=== PATIENT | male | born 1970 | race Caucasian/White ===

== ENCOUNTER 2018-06-10 16:31 | Inpatient (IN) | payer OTHER ==
[~2018-06-10] VITALS: Ht 193 cm; Wt 172.9 kg
[~2018-06-10 16:31] MED LIST: CLOM50TA17 PO; LOSA25TA25 PO; NAPR-856 PO
[2018-06-10] MEDS ORDERED: ASPIRIN 81 MG TABLET CHEW ONE (16:44)
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
--- NOTE | 2018-06-10 16:44 | NUR ---
CODE CARDIAC CALLED CARDS CALLED
[2018-06-10] MEDS ORDERED: MIDAZOLAM 1 MG/ML, 5ML ONE (16:46)
[2018-06-10] MEDS ORDERED: LIDOCAINE 1%, 20ML ONE (16:47)
[2018-06-10] MEDS ORDERED: HEPARIN 1,000 UNITS/ML, 10ML ONE (16:47)
[2018-06-10] MEDS ORDERED: FENTANYL PF 250 MCG/5ML ONE (16:47)
[2018-06-10] MEDS ORDERED: BIVALIRUDIN 250 MG ONE (16:47)
[2018-06-10] MEDS: NITROGLYCERIN SINGLE TAB 0.4 MG SL PRN ×2 (16:52→16:59)
--- NOTE | 2018-06-10 16:54 | NUR ---
[employer]ODUCTION WORKER READY
--- NOTE | 2018-06-10 16:59 | NUR ---
NO CHANGE IN PAIN POST 1ST NITRO. VS NOTED. 2ND DOSE NITRO GIVEN SUBLINGUAL. PT TO ONLINE SERVICES MANAGER WITH RN ASSIST.
[2018-06-10] MEDS ORDERED: ASPIRIN 81 MG TABLET CHEW PO ONE (17:00)
[2018-06-10] MEDS ORDERED: VERAPAMIL 2.5 MG/ML, 2ML ONE (17:04)
[2018-06-10 17:05] LABS: BASOPHILS # (AUTO) 0.11 x10^3/uL (0-0.1); BASOPHILS % (AUTO) 1 % (0-1); EOSINOPHILS # (AUTO) 0.21 x10^3/uL (0-0.4); EOSINOPHILS % (AUTO) 3 % (1-7); LYMPHOCYTES # (AUTO) 3.35 x10^3/uL (1-3.4); LYMPHOCYTES % (AUTO) 41 % (22-44); MD NO; MEAN CORPUSCULAR HGB CONC 34.5 g/dL (33.2-36.2); MEAN CORPUSCULAR VOLUME 92.7 fL (81-97); MEAN PLATELET VOLUME 7.3 fL (7.4-10.4); MONOCYTES # (AUTO) 0.48 x10^3/uL (0.2-0.8); MONOCYTES % (AUTO) 6 % (2-9); NEUTROPHILS # (AUTO) 3.96 x10^3/uL (1.8-6.8); NEUTROPHILS % (AUTO) 49 % (42-75); PLATELET COUNT 177 x10^3/uL (130-400); RED BLOOD COUNT 5.31 x10^6/uL (4.38-5.82); RED CELL DISTRIBUTION WIDTH 12.9 % (9.4-14.8)
[2018-06-10] MEDS ORDERED: PRASUGREL 10 MG TABLET ONE (17:09)
[2018-06-10 17:11] LABS: ALBUMIN 4.1 g/dL (3.4-5.0); ANION GAP 10 mmol/L (5-15); CALCIUM 9.4 mg/dL (8.5-10.1); CHLORIDE 103 mmol/L (98-107); CREATININE 0.92 mg/dL (0.7-1.3)
[2018-06-10 17:15] LABS: TROPONIN I < 0.015 ng/mL (0.000-0.045)
[2018-06-10 17:22] LABS: INTERNATIONAL NORMALIZED RATIO 1.01 (0.93-1.1); PROTHROMBIN TIME 10.7 Seconds (9.6-11.5)
[2018-06-10] MEDS ORDERED: BIVALIRUDIN 250 MG in DEXTROSE 5% 100 ML IV SCH (17:31)
[2018-06-10] MEDS ORDERED: FUROSEMIDE 40 MG/4 ML ONE (17:45)
[2018-06-10] MEDS ORDERED: ONDANSETRON 2MG/ML, 2ML IVPush PRN (18:00)
[2018-06-10] MEDS ORDERED: ZOLPIDEM 5MG TABLET PO PRN (18:00)
[2018-06-10] MEDS ORDERED: POTASSIUM CHLORIDE 20 MEQ TAB.ER.PRT PO ONE (18:00)
[2018-06-10] MEDS ORDERED: morphine SULFATE 10 MG/ML, 1ML IV PRN (18:00)
[2018-06-10 19:23] LABS: CHOL/HDL RATIO 4.5; LDL/HDL RATIO 2.5 (0.5-3.0)
[2018-06-10] MEDS: ATORVASTATIN 80 MG TABLET PO SCH (20:43)
[2018-06-10] MEDS: METOPROLOL TARTRATE 50 MG TABLET PO SCH (20:44)
[2018-06-10] MEDS: SODIUM CHLORIDE FLUSH 10ML SYR IVF SCH (20:47)
[2018-06-10] MEDS: ACETAMINOPHEN 325 MG TABLET PO PRN (22:18)
[2018-06-10 23:40] VITALS: BP 133/74
[2018-06-11 04:33] LABS: ANION GAP 6 mmol/L (5-15); CALCIUM 8.6 mg/dL (8.5-10.1); CHLORIDE 104 mmol/L (98-107); CREATININE 0.97 mg/dL (0.7-1.3)
[2018-06-11] MEDS: METOPROLOL TARTRATE 50 MG TABLET PO SCH (06:34)
[2018-06-11] MEDS ORDERED: LISINOPRIL 5 MG TABLET ONE (07:51)
[2018-06-11] MEDS: ASPIRIN 81 MG TABLET EC PO SCH (08:01)
[2018-06-11] MEDS: ACETAMINOPHEN 325 MG TABLET PO PRN (08:02)
[2018-06-11] MEDS: PRASUGREL 10 MG TABLET PO SCH (08:02)
[2018-06-11] MEDS: SODIUM CHLORIDE FLUSH 10ML SYR IVF SCH ×2 (08:24→21:27)
[2018-06-11] MEDS: LISINOPRIL 5 MG TABLET PO SCH (08:24)
[2018-06-11 10:54] VITALS: BP 152/94
[2018-06-11 12:21] VITALS: BP 150/89
[2018-06-11 19:25] VITALS: BP 131/74
[2018-06-11] MEDS: METOPROLOL TARTRATE 25 MG TABLET PO SCH (21:27)
[2018-06-11] MEDS: ATORVASTATIN 80 MG TABLET PO SCH (21:27)
[2018-06-12 01:52] VITALS: BP 113/68
[2018-06-12] MEDS: ACETAMINOPHEN 325 MG TABLET PO PRN (05:56)
[2018-06-12] MEDS: METOPROLOL TARTRATE 25 MG TABLET PO SCH ×2 (05:56→20:44)
[2018-06-12 06:55] VITALS: BP 113/67
[2018-06-12] MEDS: PRASUGREL 10 MG TABLET PO SCH (08:02)
[2018-06-12] MEDS: ASPIRIN 81 MG TABLET EC PO SCH (08:02)
[2018-06-12] MEDS: LISINOPRIL 5 MG TABLET PO SCH (08:02)
[2018-06-12] MEDS: SODIUM CHLORIDE FLUSH 10ML SYR IVF SCH ×2 (08:03→20:45)
[2018-06-12 12:29] VITALS: BP 131/75
[2018-06-12] MEDS: ATORVASTATIN 80 MG TABLET PO SCH (20:44)
[2018-06-13] MEDS: METOPROLOL TARTRATE 25 MG TABLET PO SCH (06:11)
[2018-06-13 07:50] VITALS: BP 118/71
[2018-06-13] MEDS ORDERED: PRAS10TA4 PO (08:36)
[2018-06-13] MEDS ORDERED: METO25TA35 PO (08:36)
[2018-06-13] MEDS ORDERED: ATOR-2 PO (08:36)
[2018-06-13] MEDS ORDERED: ASPI81TA45 PO (08:36)
[2018-06-13] MEDS: ASPIRIN 81 MG TABLET EC PO SCH (09:17)
[2018-06-13] MEDS: SODIUM CHLORIDE FLUSH 10ML SYR IVF SCH (09:18)
[2018-06-13] MEDS: PRASUGREL 10 MG TABLET PO SCH (09:18)
[2018-06-13] MEDS: LISINOPRIL 5 MG TABLET PO SCH (09:18)
== END 2018-06-13 12:47 | disposition home or self-care (01) | DRG 246 ==
LOC: ED 16:50 → EDIP 17:00 → CCU 17:59 → 5SO 06-11 10:48 → DCLOUNGE 06-13 12:35
PROVIDERS: ADMIT Internal Medicine Cardiovascular Disease; ATTEND Internal Medicine Cardiovascular Disease
PROC: 027034Z Dilation of Coronary Artery, One Artery with Drug-eluting Intraluminal Device, Percutaneous Approach (ICD-10-PCS; principal; 2018-06-10)
PROC: 4A023N7 Measurement of Cardiac Sampling and Pressure, Left Heart, Percutaneous Approach (ICD-10-PCS; 2018-06-10)
PROC: B2111ZZ Fluoroscopy of Multiple Coronary Arteries using Low Osmolar Contrast (ICD-10-PCS; 2018-06-10)
PROC: B2151ZZ Fluoroscopy of Left Heart using Low Osmolar Contrast (ICD-10-PCS; 2018-06-10)
DX: I21.19 ST elevation (STEMI) myocardial infarction involving other coronary artery of inferior wall (principal); I50.33 Acute on chronic diastolic (congestive) heart failure; G47.30 Sleep apnea, unspecified; F12.90 Cannabis use, unspecified, uncomplicated; E78.5 Hyperlipidemia, unspecified; E74.39 Other disorders of intestinal carbohydrate absorption; I25.10 Atherosclerotic heart disease of native coronary artery without angina pectoris; I11.0 Hypertensive heart disease with heart failure
CPT/HCPCS: 36415; 93458; 99285; C9600; 71045; 80047; 80048; 80061; 82040; 84484; 85014; 85018; 85025; 85610; 85730; 87081; 93005; 93306; 99156; C1769; C1894; G0378; J0583; J1644; J1940; J2250; J3010; J3490; C1725; C1874; C1887; Q9967

== ENCOUNTER → 2018-08-14 | Outpatient (CLI) | payer OTHER ==
[~2018-08-14] MED LIST changes: +ASPI81TA45 PO; +ATOR-2 PO; +METO25TA35 PO; +PRAS10TA4 PO
== END | disposition home or self-care (01) ==
LOC: CVU 09:34
PROVIDERS: ATTEND Internal Medicine Cardiovascular Disease
DX: I08.0 Rheumatic disorders of both mitral and aortic valves (principal); I25.10 Atherosclerotic heart disease of native coronary artery without angina pectoris; I25.2 Old myocardial infarction; I10 Essential (primary) hypertension; E78.5 Hyperlipidemia, unspecified; R73.03 Prediabetes; F12.20 Cannabis dependence, uncomplicated
CPT/HCPCS: 93306